=== PATIENT | male | born 1990 | race Native Hawaiian/Other Pacific Islander ===

== ENCOUNTER 2016-10-12 23:32 | Emergency (ER) | payer OTHER ==
[~2016-10-12] VITALS: Ht 170.2 cm; Wt 63.5 kg
[2016-10-13 00:39] LABS: PLATELET COUNT 165 K/uL (142-355)
[2016-10-13 00:48] LABS: POTASSIUM 3.7 mmol/L (3.6-5.2); SODIUM 138 mmol/L (136-145)
== END 2016-10-13 01:06 | disposition home or self-care (01) ==
LOC: ED 23:32
DX: K52.9 Noninfective gastroenteritis and colitis, unspecified (principal)
CPT/HCPCS: 36415; 80053; 81000; 85027; 99283

== ENCOUNTER 2019-06-10 15:37 | Emergency (ER) | payer OTHER ==
[~2019-06-10] VITALS: Ht 170.2 cm; Wt 65.8 kg
[2019-06-10 15:42] VITALS: BP 108/91; TEMP 98.1
== END 2019-06-10 16:14 | disposition home or self-care (01) ==
LOC: ED 15:37
DX: J02.8 Acute pharyngitis due to other specified organisms (principal); F17.210 Nicotine dependence, cigarettes, uncomplicated; F17.290 Nicotine dependence, other tobacco product, uncomplicated
CPT/HCPCS: 87651; 99282

== ENCOUNTER 2019-07-17 18:16 | Emergency (ER) | payer OTHER ==
[~2019-07-17] VITALS: Ht 167.6 cm; Wt 65.8 kg
[2019-07-17 20:45] VITALS: BP 148/88; TEMP 98.5
== END 2019-07-17 20:45 | disposition home or self-care (01) ==
LOC: ED 18:16
DX: M25.512 Pain in left shoulder (principal)
CPT/HCPCS: 99283

== ENCOUNTER 2021-03-03 20:43 | Emergency (ER) | payer OTHER ==
[~2021-03-03] VITALS: Ht 167.6 cm; Wt 74.8 kg
[2021-03-03 20:57] VITALS: TEMP 97.7
[2021-03-03 22:19] VITALS: BP 140/71
== END 2021-03-03 22:19 | disposition home or self-care (01) ==
LOC: ED 20:43
DX: S46.812A Strain of other muscles, fascia and tendons at shoulder and upper arm level, left arm, initial encounter (principal); X50.9XXA Other and unspecified overexertion or strenuous movements or postures, initial encounter; Y92.89 Other specified places as the place of occurrence of the external cause
CPT/HCPCS: 99281